=== PATIENT | female | born 1990 ===

== ENCOUNTER 2018-08-25 17:34 | Emergency (ER) | payer OTHER ==
[2018-08-25 18:41] VITALS: BMI 22.1
[2018-08-25 18:45] VITALS: RESP 18
[2018-08-25 19:32] VITALS: TEMP 98.6
[2018-08-25 19:34] VITALS: BP 112/74; PULSE 69; O2SAT 100
[2018-08-25] MEDS ORDERED: Metoclopramide 5 mg/5 ml Oral Sol PO STA (19:55)
--- NOTE | 2018-08-25 20:03 | ED PDOC ---
Arrival/HPI - General Chief Complaint: Dizziness/Lightheaded Time Seen by Provider: 08/25/18 17:41 Historian: Patient - History of Present Illness Narrative History of Present Illness (Text): 08/25/18 19:42 27 year old female, whose past medical history includes vertigo, who presents to the emergency department complaining of dizziness for 1 week. Patient states she thought it was Vertigo at first, since she has had similar symptoms in the past and was told it was Vertigo. Patient states she was cleaning the lower right side of her mouth yesterday, where her wisdom tooth is, since it felt irritated when she noticed pus and bleeding. Patient notes she thinks the dizziness may be related to the wisdom tooth. Patient reports she went to her dentist on 07/25/2018, and thinks an infection may have started since then. Patient states she has not found an oral surgeon yet to show it to, noting that her dentist will be back in about 2 weeks and she will not able to wait that long. Patient notes she saw her PMD and was prescribed 12.5mg of Antivert but states it is not working, and states she last took it 2 days ago. Patient denies any fevers, chills, chest pain, shortness of breath, abdominal pain, nausea, vomiting, diarrhea, back pain, neck pain, urinary symptoms, headache, or any other complaint. PMD: Bridgette Wen Time/Duration: 1 week (Pt notes dizziness for past week ) Symptom Onset: Sudden Symptom Course: Unchanged Activities at Onset: Light Past Medical History - Provider Review Nursing Documentation Reviewed: Yes - Infectious Disease Hx of Infectious Diseases: None - Reproductive Menopause: No Currently : No - Psychiatric Hx Substance Use: No - Anesthesia Hx Anesthesia: No Hx Anesthesia Reactions: No Hx Malignant Hyperthermia: No Family/Social History - Physician Review Nursing Documentation Reviewed: Yes Family/Social History: No Known Family HX Smoking Status: Never Smoked Hx Alcohol Use: Yes Frequency of alcohol use: Socially Hx Substance Use: No Allergies/Home Meds Allergies/Adverse Reactions: Allergies corn Allergy (Verified 08/26/18 08:41) URTICARIA peanut Allergy (Verified 08/26/18 08:41) ANAPHYLAXIS Review of Systems - Physician Review All systems were reviewed & negative as marked: Yes - Review of Systems Constitutional: Normal. absent: Fevers, Night Sweats ENT: Other (Patient notes irritation to lower right side of mouth, where wisdom tooth is. pt states pus and bleeding noted to area after cleaning recently. ). absent: Normal Respiratory: Normal. absent: SOB Cardiovascular: Normal. absent: Chest Pain Gastrointestinal: Normal. absent: Abdominal Pain, Diarrhea, Nausea, Vomiting Genitourinary Female: Normal. absent: Urine Output Changes Musculoskeletal: Normal. absent: Back Pain, Neck Pain Neurological: Dizziness (Pt notes dizziness for the past week ). absent: Normal, Headache Physical Exam Vital Signs Reviewed: Yes Vital Signs Temp Pulse Resp BP Pulse Ox 08/25/18 19:34 69 18 112/74 100 08/25/18 19:24 98.6 F 80 18 128/84 99 08/25/18 18:44 98.4 F 72 18 114/75 100 Temperature: Afebrile Blood Pressure: Normal Pulse: Regular Respiratory Rate: Normal Appearance: Positive for: Well-Appearing, Non-Toxic, Comfortable Pain Distress: Mild Mental Status: Positive for: Alert and Oriented X 3 - Systems Exam Head: Present: Atraumatic, Normocephalic Pupils: Present: PERRL Extroacular Muscles: Present: EOMI Conjunctiva: Present: Normal Mouth: Present: Moist Mucous Membranes, Other (Additional wisdom tooth noted to right side of hard palate. No erythema or bleeding noted. No evidence of halitosis.) Neck: Present: Normal Range of Motion Respiratory/Chest: Present: Clear to Auscultation, Good Air Exchange. No: Respiratory Distress, Accessory Muscle Use Cardiovascular: Present: Regular Rate and Rhythm, Normal S1, S2. No: Murmurs Abdomen: No: Tenderness, Distention, Peritoneal Signs Back: Present: Normal Inspection Upper Extremity: Present: Normal Inspection. No: Cyanosis, Edema Lower Extremity: Present: Normal Inspection. No: Edema Neurological: Present: GCS=15, Speech Normal Skin: Present: Warm, Dry, Normal Color. No: Rashes Psychiatric: Present: Alert, Oriented x 3, Normal Insight, Normal Concentration Medical Decision Making ED Course and Treatment: 08/25/18 19:42 Impression: 27 year old female who presents to the Emergency department for dizziness for the past week. Differential Diagnosis included but are not limited to: --Vertigo --Earle tooth abscess Plan: -- Ativan -- Reglan -- Prednisone -- Reassess and disposition Progress Notes: 08/25/18 20:00 Patient encouraged to follow up with one of the proposed dental clinics provided in the discharge summary. She is encouraged to continue safe dental hygiene techniques as well as avoidance of irritation of the infected wisdom tooth area. She demonstrates understanding and will follow up. Return protocol provided. Scripts given. Opportunity for answering questions provided. She is stable for discharge. - Medication Orders Current Medication Orders: Lorazepam (Ativan) 1 mg PO ONCE ONE; Protocol Stop: 08/25/18 19:50 Metoclopramide HCl (Reglan) 10 mg PO STAT STA Stop: 08/25/18 19:56 Prednisone (Prednisone Tab) 60 mg PO STAT ONE Stop: 08/25/18 19:50 - Scribe Statement The provider has reviewed the documentation as recorded by the Scribe Kylah Chapa All medical record entries made by the Scribe were at my direction and personally dictated by me. I have reviewed the chart and agree that the record accurately reflects my personal performance of the history, physical exam, medical decision making, and the department course for this patient. I have also personally directed, reviewed, and agree with the discharge instructions and disposition. Disposition/Present on Arrival - Present on Arrival Any Indicators Present on Arrival: No History of DVT/PE: No History of Uncontrolled Diabetes: No Urinary Catheter: No History of Decub. Ulcer: No History Surgical Site Infection Following: None - Disposition Have Diagnosis and Disposition been Completed?: Yes Diagnosis: Vertigo, Tooth pain Disposition: HOME/ ROUTINE Disposition Time: 20:15 Patient Plan: Discharge Condition: STABLE Discharge Instructions (ExitCare): Vertigo (a Type of Dizziness) (DC), Dental Pain (DC) Print Language: TURKMEN Additional Instructions: All medical record entries made by the Scribe were at my direction and persona lly dictated by me. I have reviewed the chart and agree that the record accurately reflects my personal performance of the history, physical exam, medical decision making, and the department course for this patient. I have also personally directed, reviewed, and agree with the discharge instructions and disposition. Please follow up with your PCP in 1-2 weeks Follow up in dental clinic for possible extraction of wisdom tooth. Dental Clinics 1. [facility] [address] [place], [place] [id number] [address] [place], [place] [id number] 3. [facility] [address] [place] [address] [place], [place] [id number] 4. [facility] [address] [place], [place] [address] Prescriptions: Amoxicillin/Clavulanate [Augmentin 875 MG-125 MG] 1 tab PO BID 10 Days #20 tab Mag&Al/Simet/Diphen/Lido [First Magic Mouthwash] 5 ml MM Q8H #1 kit Methylprednisolone [Medrol Dose Pack (21 tabs)] 4 mg PO DAILY #21 mg Metoclopramide HCl [Reglan] 10 mg PO Q6H #10 tablet Referrals: Jesus Knox DO [Staff Provider] - Follow up with primary Forms: [facility] (Austrian), WORK NOTE
== END 2018-08-25 20:22 | disposition home or self-care (01) ==
LOC: MERGE 17:34 → ED 17:34
DX: R42 Dizziness and giddiness (principal); K08.89 Other specified disorders of teeth and supporting structures